=== PATIENT | female | born 1965 | race African-American/Black ===

== ENCOUNTER 2017-05-24 08:58 | Day surgery (SDC) | payer OTHER ==
[~2017-05-24] VITALS: Ht 162.6 cm; Wt 83.0 kg
[2017-05-24] VITALS (8 sets, daily range): BP systolic 107–127; BP diastolic 61–81
[2017-05-24] MEDS ORDERED: BYSTOLIC10 MG ORAL (10:00)
[2017-05-24] MEDS ORDERED: TRIBENZOR 20-51 EACH ORAL (10:00)
[2017-05-24] MEDS ORDERED: METFORMIN HCL1000 M3 PO (10:00)
[2017-05-24] MEDS ORDERED: LR 1000ml 1,000 ML IVLG SCH ×2 (10:15→13:38)
[2017-05-24] MEDS ORDERED: Midazolam 2mg/2ml Inj ONE (11:00)
[2017-05-24] MEDS ORDERED: Propofol 200mg/20ml IV ONE (11:00)
[2017-05-24] MEDS ORDERED: LR 1000ml ONE (11:00)
[2017-05-24] MEDS ORDERED: Lidocaine 1% MPF 10mg/ml 5ml ONE (11:00)
--- NOTE | 2017-05-24 11:17 | Anethesia Preoperative Eval ---
Anesthesia Pre-op PMH/ROS General Date of Evaluation: May 24, 2017 Time of Evaluation: 11:00 Anesthesiologist: karmen ASA Score: ASA 3 Mallampati Score Class I : Soft palate, uvula, fauces, pillars visible Class II: Soft palate, uvula, fauces visible Class III: Soft palate, base of uvula visible Class IV: Only hard plate visible Mallampati Classification: Class II Surgeon: porsha Diagnosis: colon screening Surgical Procedure: colonoscopy Anesthesia History: none Social History: smoking - nonsmoker Family History: no anesthesia problems Allergies: Coded Allergies: MORPHINE (Verified Allergy, Severe, 05/24/17) itching TETRACYCLINE (Verified Allergy, Severe, 05/24/17) swelling in the face, hives Medications: see eMAR Past Medical History Cardiovascular: Reports: HTN Endocrine: Reports: DM Anesthesia Pre-op Phys. Exam Physician Exam Last Vital Signs Date Time Temp Pulse Resp B/P (MAP) Pulse Ox O2 Delivery O2 Flow Rate FiO2 05/24/17 09:56 97.7 63 17 127/81 98 Room Air 97.7 Constitutional: NAD Neurologic: CN 2-12 intact Cardiovascular: RRR Respiratory: CTA Gastrointestinal: S/NT/ND Airway Exam Mallampati Score: Class II MO: full Neck: short TMD: 2fb ROM: full Teeth: intact Anesthesia Pre-op A/P Labs Urine Test Test 05/24/17 09:20 Urine HCG, Qualitative Negative Risk Assessment & Plan Assessment: asa3 Plan: mac Status Change Before Surgery: No Pre-Antibiotics Drug: VENKATA Bermudez May 24, 2017 11:17
--- NOTE | 2017-05-24 11:19 | Short Stay Surgery H&P ---
History of Present Illness History of Present Illness Chief Complaint Screening colon HPI Jose Martinez is a 52 year old female who was admitted on for Colon Screening Patient History Allergies: Coded Allergies: MORPHINE (Verified Allergy, Severe, 05/24/17) itching TETRACYCLINE (Verified Allergy, Severe, 05/24/17) swelling in the face, hives PAST MEDICAL HISTORY: (1) Diabetes (2) Hypertension Past Surgeries: Social History: Medication History Scheduled Metformin HCl (Metformin HCl ER), 1,500 MG PO DAILY, (Reported) Nebivolol Hcl (Bystolic*), 10 MG ORAL DAILY, (Reported) Olmesartan Med/Amlodipine/Hctz 20-5-12.5MG (Tribenzor 20-5-12.5 Mg Tablet), 1 TAB ORAL DAILY, (Reported) Review of Systems Cardiovascular: Reports: no symptoms Respiratory: Reports: no symptoms Skeletal: Reports: no symptoms Gastrointestinal: Reports: no symptoms Genitourinary: Reports: no symptoms Neurologic: Reports: no symptoms Endocrine: Reports: no symptoms Hematologic: Reports: no symptoms Physical Exam Vital Signs Last Vital Signs Date Time Temp Pulse Resp B/P (MAP) Pulse Ox O2 Delivery O2 Flow Rate FiO2 05/24/17 09:56 97.7 63 17 127/81 98 Room Air 97.7 Labs Laboratory Tests Test 05/24/17 09:20 Urine HCG, Qualitative Negative Skin: normal HENT: normal Heart: normal Lungs: normal Abdomen: normal Extremities: normal Genitourinary: normal Plan Plan of Care Total screening colonoscopy Preop Interventions None. Summary of Findings See the reports Final Diagnosis: Attestation Are the patient's medical conditions optimized for surgery? Attestation Response: yes BRAN ESPINOZA May 24, 2017 11:19
--- NOTE | 2017-05-24 11:19 | Pre-Procedure Note/Attestation ---
Pre-Procedure Note/Attestation Complete Prior to Procedure Planned Procedure: left Procedure Narrative: Endoscopic exam of the colon Indications for Procedure Pre-Operative Diagnosis: R/O colon polyps/CA Attestation I attest that I discussed the nature of the procedure; its benefits; risks and complications; and alternatives (and the risks and benefits of such alternatives ), prior to the procedure, with the patient (or the patient's legal signs sales representative). I attest that, if there was a reasonable possibility of needing a blood transfusion, the patient (or the patient's legal signs sales representative) was given the [facility] standardized written summary, pursuant to the [place] Oswaldo Blood Safety Act ([place] Health and Safety Code # 1645, as amended). I attest that I re-evaluated the patient just prior to the surgery and that there has been no change in the patient's H&P, except as documented below: OLGA,SAID May 24, 2017 11:19
--- NOTE | 2017-05-24 11:20 | Pre-Procedure Note/Attestation ---
Pre-Procedure Note/Attestation Complete Prior to Procedure Planned Procedure: left Procedure Narrative: Examination of the colon via endoscopy Indications for Procedure Pre-Operative Diagnosis: R/O colon polyps/CA Attestation I attest that I discussed the nature of the procedure; its benefits; risks and complications; and alternatives (and the risks and benefits of such alternatives ), prior to the procedure, with the patient (or the patient's legal traffic workforce representative). I attest that, if there was a reasonable possibility of needing a blood transfusion, the patient (or the patient's legal traffic workforce representative) was given the [facility] standardized written summary, pursuant to the Perry Oswaldo Blood Safety Act ([place] Health and Safety Code # 1645, as amended). I attest that I re-evaluated the patient just prior to the surgery and that there has been no change in the patient's H&P, except as documented below: OLGASAID May 24, 2017 11:20
--- NOTE | 2017-05-24 11:38 | Endoscopy Procedure Note ---
Endoscopy Procedure Note General Indication for Procedure: Screening colonoscopy Procedures Performed: colonoscopy - Normal total colonoscopy with high redundancy of left colon. Specimen: none Pt Tolerated Procedure Well: Yes Estimated Blood Loss: none Anesthesia Anesthesiologist: Dr. Kapoor Anesthesia: moderate sedation Medications Medication Given: see anesthesia record Inserted Devices Implant(s) used?: No Quality Quality of Bowel Preparation: Poor Did scope reach the cecum?: Yes Why scope didn't reach cecum: Bowel preparation poor Was there any complications?: No GI Core Measures 50 yrs or older w/o bx or poly: Yes 10yrs. F/U not recommended: Yes 10 yrs. F/U needed: Yes 18 years or older w/prev. colo: No <3yrs. since last colonoscopy: No Med reason:<3 yrs.: System Reason:<3 yrs.: Last colonoscopy >= to 3yrs: Yes BRAN ESPINOZA May 24, 2017 11:38
--- NOTE | 2017-05-24 11:38 | Discharge Instructions ---
Discharge Instructions Discharge Instructions Follow up with: Doctor will speak with the For Congestive Heart Failure Reminder Report to your physician any weight gain of 5 pounds or more in one week. BRAN ESPIONZA May 24, 2017 11:38
[2017-05-24] MEDS ORDERED: fentaNYL 100 mcg/2 mL IV PRN (13:45)
[2017-05-24] MEDS ORDERED: DiphenhydrAMINE 50mg/ml Inj IVP PRN (13:45)
[2017-05-24] MEDS ORDERED: Atropine Inj 1mg/10ml Syr IV PRN (13:45)
[2017-05-24] MEDS ORDERED: Midazolam 2mg/2ml Inj IVP PRN (13:45)
--- NOTE | 2017-05-24 13:45 | Immediate Post-Op Evaluation ---
Immediate Post-Op Evalulation Immediate Post-Op Evalulation Procedure: colonoscopy Date of Evaluation: May 24, 2017 Time of Evaluation: 11:55 IV Fluids: 150ml lr Blood Products: none Estimated Blood Loss: negligible Blood Pressure Systolic: 107 Blood Pressure Diastolic: 61 Pulse Rate: 70 Respiratory Rate: 18 O2 Sat by Pulse Oximetry: 100 Temperature (Fahrenheit): 97.3 Pain Score (1-10): 0 Nausea: No Vomiting: No Complications none Patient Status: awake, reacts, patent Hydration Status: adequate Drug: VENKATA Bermudez May 24, 2017 13:45
--- NOTE | 2017-05-24 13:46 | 48 Hour Post Anesthesia Eval ---
Post Anesthesia Evaluation Procedure: colonoscopy Date of Evaluation: May 24, 2017 Time of Evaluation: 11:57 Blood Pressure Systolic: 112 0: 72 Pulse Rate: 73 Respiratory Rate: 18 Temperature (Fahrenheit): 97.3 O2 Sat by Pulse Oximetry: 100 Airway: patent Nausea: No Vomiting: No Pain Intensity: 0 Hydration Status: adequate Cardiopulmonary Status: stable Mental Status/LOC: patient returned to baseline Post-Anesthesia Complications: none Follow-up care needed: N/A VENKATA MENDOZA May 24, 2017 13:46
--- NOTE | 2017-05-27 17:15 | Procedure Note ---
DATE OF PROCEDURE: 05/24/2017 SURGEON: Theodore Hernandez M.D. PROCEDURE: Total colonoscopy. PREOPERATIVE DIAGNOSIS: Screening colonoscopy. POSTOPERATIVE DIAGNOSIS: Completely normal total colonoscopy. MEDICATION USED: Per anesthesiologist, Dr. Kapoor. INSTRUMENT: GIF Olympus video colonoscope. DESCRIPTION OF PROCEDURE: The patient, after arriving in endoscopy unit, was told about risks and benefits of the procedure, which she accepted and signed informed consent. At this time, she was put on the left lateral decubitus position. After adequate IV sedation, the scope was gently passed through the anal area and retroflexion maneuver was applied here, which did not reveal any evidence of abnormality. After passage of the scope through the normal looking rectum, it was guided into rectosigmoid area and from there into descending colon, splenic flexure, transverse colon, and finally all the way to the right colon to the base of the cecum. All these areas remained to be completely normal. At this point, the scope was gradually pulled out within 7 minutes and re-evaluation did not reveal any other abnormalities. The colon cleanup was adequate and excellent. The patient tolerated the procedure well, left the endoscopy room in a good condition. Theodore Hernandez M.D. DR: Marques JOB#: [id number] CC: Latisha Gan M.D.; Fax#: [phone]
== END 2017-05-24 12:45 | disposition home or self-care (01) ==
LOC: GAS 08:58
DX: Z12.11 Encounter for screening for malignant neoplasm of colon (principal); E11.9 Type 2 diabetes mellitus without complications; I10 Essential (primary) hypertension; Z88.6 Allergy status to analgesic agent; Z79.84 Long term (current) use of oral hypoglycemic drugs
CPT/HCPCS: 45378; 81025; 82962; J2250; J2704; J7120; 94003; 94150